=== PATIENT | male | born 2000 | race Caucasian/White ===

== ENCOUNTER → 2019-07-28 | Outpatient (CLI) | payer OTHER ==
--- NOTE | 2019-07-29 08:32 | RAD ---
EXAM DESCRIPTION: Hand,Right 2 Views CLINICAL HISTORY: HAND PAIN COMPARISON: August 27, 2016 TECHNIQUE: Two views right hand FINDINGS: Two views right hand demonstrate normal alignment without fracture or deformity. Bones are well-mineralized. No foreign body noted. IMPRESSION: 1. Negative right hand two views. Electronically signed by: Reagan Ennis MD 07/29/2019 8:30 AM [facility]
== END ==
LOC: RAD 15:43
PROVIDERS: ATTEND Nurse Practitioner Family
DX: M79.641 Pain in right hand (principal)